=== PATIENT | female | born 2005 | race Two or more races ===

== ENCOUNTER 2025-11-09 22:29 | Emergency (ER) | payer SELFPAY ==
[2025-11-09] MEDS: FAMOTIDINE/PF 20 MG/2 ML VIAL 40 MG IV (22:39)
--- NOTE | 2025-11-09 22:40 | ED.GENADUL1 ---
HPI HPI - General Adult General Chief complaint: Allergic Reaction Stated complaint: ALLERGIC REACTION TO KIWI Time Seen by Provider: 11/09/25 22:34 History of Present Illness HPI narrative: This 20-year-old female presents for evaluation of facial swelling and itching after eating kiwi. She states she has had kiwi many times in the past and never had an allergic reaction to it. She states that she also took an ibuprofen prior to that because she has a fever. Her fever started yesterday. She does not wish to be checked for COVID-19 or influenza. She denies the possibility of . She states she feels mildly short of breath which has increased since eating the kiwi around 9:30 PM. No medications were taken prior to arrival for the allergic reaction. Related Data Allergies Allergy/AdvReac Type Severity Reaction Status Date / Time kiwi Allergy Severe Swelling Verified 11/09/25 22:46 of Lip/Tongue/Throat Review of Systems ROS Status of ROS 10 or more systems reviewed and unremarkable except as noted in history and below PFSH [facility] Surgical History (Updated 11/09/25 @ 23:01 by Yuan Emerson) History of appendectomy ?Z90.49 - Acquired absence of other specified parts of digestive tract (ICD-10) Social History Little interest or pleasure in doing things: not at all Feeling down, depressed, or hopeless: not at all Exam Narrative Exam Narrative: Vital signs and Nursing Notes reviewed: General: Awake, alert, oriented, notable facial redness and mild swelling HEENT: Normocephalic atraumatic, mucous membranes are pink and dry, there is mild facial swelling but there is no notable swelling of the lips, now tongue, uvula or pharyngeal soft tissues, speech is clear, there is no pooling of secretions Neck: Supple, no meningeal signs, no stridor Chest: Faint expiratory wheezing noted, no rhonchi or rales, no accessory muscle use, CVS: Regular rate and rhythm S1-S2, no murmurs rubs or gallops, pulses are brisk and equal bilaterally ABD: Soft, nondistended, nontender, no rebound guarding or rigidity, bowel sounds are normal, no pulsatile masses appreciated Extremities: Moving all extremities, no lower extremity tenderness or swelling noted Skin: Facial swelling otherwise no notable urticarial rash noted Neuro: No focal deficits Constitutional Vital Signs, click to edit/add: Last Vital Signs Temp 99.2 F 11/09/25 23:50 Pulse 102 H 11/09/25 23:50 Resp 22 H 11/09/25 23:50 BP 109/63 11/09/25 22:58 Pulse Ox 97 11/09/25 23:50 O2 Del Method Room Air 11/09/25 23:24 Course Vital Signs Vital signs: Vital Signs Pulse Rate 98 H 11/09/25 22:58 Respiratory Rate 22 H 11/09/25 22:58 Blood Pressure 109/63 11/09/25 22:58 Pulse Oximetry 96 11/09/25 22:58 Oxygen Delivery Method Room Air 11/09/25 22:58 Temperature 99.2 F 11/09/25 23:50 Pulse Rate 102 H 11/09/25 23:50 Respiratory Rate 22 H 11/09/25 23:50 Blood Pressure 109/63 11/09/25 22:58 Pulse Oximetry 97 11/09/25 23:50 Oxygen Delivery Method Room Air 11/09/25 23:24 Medical Decision Making [facility] Narrative Medical decision making narrative: This 20-year-old female presents for evaluation of an allergic reaction with facial swelling and tightness in her throat after eating kiwi and taking ibuprofen for a fever. She states her fever started yesterday. She likely has the flu but declines testing. She has had kiwi in the past but states she rarely takes gtym-wwj-ezvwmjj medications. Upon arrival she was seen and evaluated immediately in room 10. An IV was placed and she was medicated with IM epinephrine, Solu-Medrol, Benadryl and Pepcid. Her symptoms started responding immediately. Her facial swelling has resolved and the sensation in her throat has resolved. She was also given a DuoNeb treatment due to mild expiratory wheezing. She was monitored closely and reevaluated multiple times. Her symptoms resolved and she remained stable. She was given a liter of IV fluid. She will be discharged home with a prescription for Benadryl, Pepcid and a Medrol Dosepak. She was encouraged to avoid kiwi and ibuprofen in the future. She never had any respiratory distress or swelling of the tongue, uvula or pharyngeal soft tissues. Her voice has been normal and she has not had any swelling in her anterior neck, she has also not had any skin rash or urticaria. Discharge Plan Discharge Chief Complaint: Allergic Reaction Clinical Impression: Allergic reaction Patient Disposition: Home, Self-Care Time of Disposition Decision: 23:55 Condition: Good Print Language: Yoruba Instructions: General Allergic Reaction (ED) Referrals: Physician,Non-Staff, MD [Primary Care Provider] - 1 week
[2025-11-09] MEDS: METHYLPREDNISOLONE SOD SUCC PF 125 MG/2 ML VIAL IVP (22:49)
[2025-11-09] MEDS: EPINEPHRINE HCL PF 1 MG/ML AMPULE 0.3 MG IM (22:49)
[2025-11-09] MEDS: DIPHENHYDRAMINE HCL 50 MG/ML VIAL 25 MG IVP (22:50)
[2025-11-09] MEDS: ALBUTEROL SULFATE 2.5 MG/3 ML VIAL NEB IH (22:56)
[2025-11-09] MEDS: 0.9 % SODIUM CHLORIDE 1,000 ML 1000 ML IV (22:57)
[2025-11-09 22:58] VITALS: BP 109/63; PULSE 98; O2SAT 96
[2025-11-09 23:02] VITALS: PULSE 107; O2SAT 96
--- NOTE | 2025-11-09 23:05 | PC.NURSE ---
Patient arrived to the ED with facial, lip, tongue, and throat swelling. Hives noted on patient face. physician notified and at bedside. IV established and medications given. vitals obtained. RT at bedside for breathing treatment. Patient swelling noticeably improved and patient reports throat swelling has resolved.
[2025-11-09 23:24] VITALS: O2SAT 96
--- OUTSIDE RECORDS SUMMARY | 2025-11-09 23:33 | XMS_ITS | Clinical Summary ---
Author Organization [facility] Formerly [facility] tem Address [id number] [facility] [place] [address] Care Team Providers Care Director Of Rotc Name Role Phone Services, [facility] Primary Care Provider Social History Tobacco UseTypesPacks/DayYears UsedDateSmoking Tobacco: Never AssessedChildcare AnswerDate BbyjojnqVxjpminmuSeqjedz54/29/2020EmploymentAnswerDate Recorded HgoaskuzpmUmleqld62/29/2020Purpose - LifeAnswerDate RecordedPurpose and direction in lychBmxbccp32/11/2021CommentsUnknownSex and Gender InformationValueDate RecordedSex Assigned at BirthNot on fileLegal SexFemale 06/23/2015 12:04 PM EDTGender IdentityNot on fileSexual OrientationNot on file Plan of Treatment Health MaintenanceDue DateLast DoneCommentsDepression Ggvkwzobc85/28/2015Tobacco Veugqmurk37/28/2015dult BMI Zrknnsmap91/28/2021DTaP,Tdap and Td Vaccines (1 - Tdap)2Pap Smear2024Influenza Vcdomzo0207/19/2025 Medical Devices Not on file Insurance * Guarantor: Chanell RiggsAccount TypeRelation to PatientDate of PhoneBilling AddressPersonal/QzhcjzYkdl2003 [address] [address] * Guarantor: Cyndi PETERSON TypeRelation to PatientDate of BirthPhone Billing AddressPersonal/QhhzemHxfyta59/21/1979 [address] [address] Care Teams Team MemberRelationshipSpecialtyStart DateEnd Services, [facility] [address] [place], [place] [facility]09/27/20
--- OUTSIDE RECORDS SUMMARY | 2025-11-09 23:33 | XMS_ITS | Clinical Summary ---
Author Organization [facility] Address [address] [place] [address] Care Team Providers Care Prenatal Nurse Name Role Phone Unavailable Primary Care Provider Unavailabl e Social History Tobacco UseTypesPacks/DayYears UsedDateSmoking Tobacco: Never Assessed CommentsUnknownSex and Gender InformationValueDate RecordedSex Assigned at Not on fileLegal JyeDjjdxx62/15/2023 7:14 PM EDTGender IdentityNot on fileSexual OrientationNot on file Plan of Treatment Not on file
[2025-11-09 23:50] VITALS: PULSE 102; TEMP 37.3; O2SAT 97
[2025-11-10] MEDS: DIPHENHYDRAMINE HCL 25 MG CAPSULE PO (00:24)
== END 2025-11-10 01:23 | disposition home or self-care (01) ==
PROVIDERS: Emergency Provider Emergency Medicine
DX: R06.02 Shortness of breath (principal); T78.19XA Other adverse food reactions, not elsewhere classified, initial encounter; R60.9 Edema, unspecified
CPT/HCPCS: 94640; 96372; 96374; 96375; 99284; J1200; J2919; J3490